=== PATIENT | male | born 1950 | race Caucasian/White ===

== ENCOUNTER → 2016-12-28 | Outpatient (CLI) | payer MEDICARE ==
[~2016-12-28] MED LIST: ASPIRIN CHILDRE81 M1 PO; ASPRIN OR; CRESTOR20 MG PO; IMDUR30 MG PO; LISINOPRIL 20MG20 MG PO; MEDROL 4MG. DOSE4 MG PO; METOPROLOL 25 M25 MG PO; MOBIC15 MG PO; PLAVIX75 MG PO; TAGAMET HB200 MG PO; VESICARE10 MG PO
--- NOTE | 2016-12-28 13:26 | RADIOLOGY REPORT PS360 ---
CT ABD PELVIS W/ CONTRAST CLINICAL INDICATION: RECTOSIGMOID MASS ORDERING PHYSICIAN: SANDOVAL SMITH PATIENT AGE: 66 years COMPARISON: 10/12/2012 TECHNIQUE: Axial images obtained with sagittal and coronal reformats. PROCEDURE: Oral Contrast: Redicat IV Contrast: 75 mL [id number]. FINDINGS: Atelectatic or fibrotic changes are present in the lung bases. There are coronary artery calcifications. The liver, spleen, and pancreas have an unremarkable appearance. There is mild nodularity noted of both adrenal glands left somewhat more so than the right. This however is stable since 10/12/2012 probably due to adenomatous involvement. There is some increased density in the posterior aspect of the gallbladder consistent with cholelithiasis. There is some mild calcification noted within the pancreatic head consistent with chronic pancreatitis. No hepatic mass. No retroperitoneal adenopathy. No intra-abdominal adenopathy. There is diverticulosis of the sigmoid colon no evidence of diverticulitis. Diverticulosis also involves the descending colon without diverticulitis. Thickening of the colon at the rectosigmoid junction. This is approximately 10 cm from the anal verge. There is some minimal blurring of the pericolic fat at this region which could be due to extra colonic serosal extension of neoplasm. A small lymph node is present in the left paracolic region adjacent to the rectosigmoid junction at 7 mm. There is no evidence of intestinal obstruction No abnormal fluid collections. No acute bony anomalies. IMPRESSION: 1. Mild concentric thickening of the rectosigmoid aspect of the colon with very minimal blurring of the pericolic fat suspicious for neoplasm. A small lymph node is present along the left lateral aspect of the rectosigmoid junction. 2. No evidence of hepatic metastasis. 3. Stable mildly enlarged adrenal glands. No convincing evidence of adrenal metastasis 4. Cholelithiasis. 5. Coronary artery disease
== END ==
LOC: RAD 12:07
DX: C20 Malignant neoplasm of rectum (principal)
CPT/HCPCS: Q9967